=== PATIENT | male | born 1970 | race Caucasian/White ===

== ENCOUNTER → 2024-11-18 08:03 | Outpatient (REF) | payer OTHER, SELFPAY | LOC: HO.SL 08:03 | PROVIDERS: PCP Internal Medicine; Visit Provider Internal Medicine | DX: G47.33 Obstructive sleep apnea (adult) (pediatric) (principal) | CPT/HCPCS: 95806 ==

== ENCOUNTER → 2024-11-18 19:00 | Outpatient (BNV) | payer OTHER, SELFPAY | PROVIDERS: PCP Internal Medicine; Visit Provider Internal Medicine | DX: G47.33 Obstructive sleep apnea (adult) (pediatric) (principal) | CPT/HCPCS: 95806 ==

== ENCOUNTER 2025-04-27 15:00 | Outpatient (AMB) | payer OTHER, SELFPAY ==
--- OUTSIDE RECORDS SUMMARY | 2025-04-26 15:30 | XMS_ITS | Encounter Summary ---
Author Organization [facility] Address [address] [place] [address] Care Team Providers Care Wind Development Director Name Role Phone Robles Smiley MD Primary Care Provider [phone] Reason for Visit * Reason Comments Follow-up Encounter Details Date Type Department Care Team (Late st Contact Info) Description 04/26/2025 3:30 PM EDT Office Visit Adult Medicine [address] [id number] Jennie Perez PA [address] [place] [id number] Primary hypertension (Primary Dx); Hypothyroidism, unspecified type; Prediabetes; Hyperlipidemia, unspecified hyperlipidemia type Social History Tobacco Use Types Packs/Day Years Used Date Smoking Tobacco: Every Day Cigarettes 1.5 40.5 Started: 11/04/1984 Smokeless Tobacco: Never Tobacco Cessation:Ready to Q uit: Not Asked; Counseling Given: Not Answered Alcohol Use Standard Drinks/Week Comments Yes 1 (1 standard drink = 0.6 oz pur e alcohol) Housing Instability Answer Date Recorde d Are you worried that in the next 2 months you may not have stable housing? Patient declined 02/09/2025 Food Access & Nutrition Answer Date Rec orded Do you have access to a vari ety of food including fruits and vegetables? Patient declined 02/09/2025 Access to Healthcare Answer Date Record ed Within the last 3 months, clara arauz many times did you visit the emergency department for your medical care? 0 02/09/2025 Health Literacy Answer Date Recorded How often do you need to hav e someone help you when you read instructions, pamphlets, or other written material from your doctor or pharmacy? Patient declined 02/09/2025 Caregiver: How often do you need to have someone help you when you read instructions, pamphlets, or other written material from your doctor or pharmacy? Not on file 025 Financial Risk Answer Date Recorded How hard is it for you to pa y for the very basics like food, housing, medical care, and air conditioning / heating? Patient declined 02/09/2025 Transportation Answer Date Recorded Has the lack of transportati on kept you from meetings, work, or from getting things needed for daily living? Patient declined 02/09/2025 Has the lack of transportati on kept you from medical appointments or from getting medications? Patient declined 02/09/2025 Social Isolation Answer Date Recorded How often do you feel lonely or isolated from those around you? Patient declined 02/09/2025 Food Risk Answer Date Recorded Within the past 12 months we worried whether our food would run out before we got money to buy more. Patient declined 025 Within the past 12 months th e food we bought just didn't last and we didn't have money to get more. Patient declined 06/2025 Dependent Care Answer Date Recorded Do you need help finding or paying for care for your loved ones. For example, director child abuse therapy or elderly care for an older adult? Patient declined 02/09/2025 Education Answer Date Recorded Do you think completing more education or training, like finishing a GED, going to college, or learning a trade, would be helpful for you? Patient declined 02/09/2025 Employment and Income Answer Date Recor ded During the last four weeks, have you been actively looking for work? Patient declined 02/09/2025 Living Situation Answer Date Recorded What is your living situation? 0 02/09/2025 Sex and Gender Information Value Date Recorded Sex Assigned at Male 11/11/2024 7:13 PM EST Legal Sex Male 4:06 AM EST Gender Identity Male 11/11/2024 7:13 PM EST Sexual Orientation Straight 11/11/2024 7: 13 PM EST documented as of this encounter Last Filed Vital Signs Vital Sign Reading Time Taken Comments Blood Pressure 130/88 04/26/2025 3:17 PM EDT Pulse 85 04/26/2025 3:17 PM EDT Temperature 36.7 C (98.1 F) 04/26/2025 3:17 PM EDT Respiratory Rate 16 04/26/2025 3:17 PM EDT Oxygen Saturation - - Inhaled Oxygen Concentration - - Weight 102 kg (225 lb) 04/26/2025 3:17 PM EDT Height 182.9 cm (6') 04/26/2025 3:17 PM EDT Body Mass Index 30.52 04/26/2025 3:17 PM EDT documented in this encounter Progress Notes * BECKI Bustamante - 04/26/2025 3:30 PM EDT CHIEF COMPLAINT: Follow-up IDENTIFIER: Jamie Parra is a 55 y.o. old male. Past medical history: Hypertension, hyperlipidemia, prediabetes, snoring History of Present Illness The patient presents for a medication check and to review blood work. Hypertension - Reports elevated blood pressure but does not monitor it at home. - Maintains hydration and consumed caffeine this morning. - No headaches or dizziness. - Healthy diet, prefers chicken and hamburgers, avoids excessive salt. - Family history of hypertension in father. - Compliant with antihypertensive medication. Smoking History - History of smoking, currently half to three-quarters of a pack per day. - Previously quit for 13 years, resumed due to stress, desires to quit again. - Tried cessation aids, successful with abrupt cessation. Sleep Study - Upcoming appointment for sleep study equipment fitting. - No prior CPAP use. - observed snoring, no sleep disturbances reported. Supplemental information: Interested in shingles vaccine. Due for colonoscopy next year. Requested testosterone test, no symptoms, 's suggestion. SOCIAL HISTORY Smokes half to three-quarters of a pack of cigarettes a day. FAMILY HISTORY Father has hypertension. ROS: See HPI PAST MEDICAL HISTORY: Patient Active Problem List Diagnosis Date Noted Neck swelling 11/19/2018 Alopecia (capitis) totalis 08/18/2018 PTSD (post-traumatic stress disorder) 08/18/2018 Vitiligo 08/18/2018 Hyperlipidemia 07/23/2018 Hypertension 07/23/2018 Hypothyroidism 07/23/2018 Increased insulin level 07/23/2018 Insulin resistance 07/23/2018 MARIELENA (obstructive sleep apnea) 07/23/2018 Past Surgical History: Procedure Laterality Date OTHER SURGICAL HISTORY PROCEDURE: DENIES PREVIOUS SURGERY SOCIAL HISTORY: Social History Tobacco Use Smoking status: Every Day Current packs/day: 1.50 Average packs/day: 1.5 packs/day for 40.5 years (60.7 ttl pk-yrs) Types: Cigarettes Start date: 11/04/1984 Smokeless tobacco: Never Substance Use Topics Alcohol use: Yes Alcohol/week: 1.0 standard drink of alcohol FAMILY HISTORY: Family History Problem Relation Name Age of Onset Hypertension Mother Diabetes Father CABG @ age 50 Lymphoma Father No Known Problems Brother No Known Problems Brother No Known Problems Brother No Known Problems Brother No Known Problems Son No Known Problems Son No Known Problems Son Family Status Relation Name Status Mother Alive Father Brother (Not Specified) Brother (Not Specified) Brother (Not Specified) Brother (Not Specified) Son (Not Specified) Son (Not Specified) Son (Not Specified) No partnership data on file MEDICATIONS DISCONTINUED/REORDERED: There are no discontinued medications. ACTIVE MEDICATIONS: Outpatient Medications Marked as Taking for the 04/26/25 encounter (Office Visit) with BECKI Bustamante Medication Sig Dispense Refill ascorbic acid (VITAMIN C) 1,000 mg tablet Take 1 tablet (1,000 mg total) by mouth 1 (one) time eachday. cholecalciferol (VITAMIN D-3) 25 mcg (1,000 unit) tablet Take 1 tablet (1,000 Units total) by mouth1 (one) time each day. EPINEPHrine (EPIPEN) 0.3 mg/0.3 mL injection Inject 0.3 mL (0.3 mg total) into the thigh if needed for anaphylaxis. Call 911 after use. 2 each 2 fenofibrate (TRICOR) 48 mg tablet TAKE 1 TABLET BY MOUTH EVERY DAY 90 tablet 1 levothyroxine (SYNTHROID, LEVOTHROID) 112 mcg tablet TAKE 1 TABLET BY MOUTH EVERY DAY 90 tablet 1 lisinopril (PRINIVIL,ZESTRIL) 40 mg tablet Take 1 tablet (40 mg total) by mouth 1 (one) time each day. 90 each 0 omega-3 acid ethyl esters (LOVAZA) 1 gram capsule Take 1 capsule (1 g total) by mouth 1 (one) time each day. omeprazole (PriLOSEC) [address] capsule Take 1 capsule (20 mg total) by mouth 1 (one) time each day.90 each 0 pravastatin (PRAVACHOL) 20 mg tablet Take 1 tablet (20 mg total) by mouth 1 (one) time each day. 90each 0 ALLERGIES: No Known Allergies PHYSICAL EXAM: Vitals: 04/26/25 1517 BP: 130/88 Pulse: 85 Resp: 16 Temp: 36.7 ??C (98.1 ??F) Physical Exam Constitutional: General: He is not in acute distress. Appearance: Normal appearance. He is not ill-appearing. Cardiovascular: Rate and Rhythm: Normal rate and regular rhythm. Heart sounds: No murmur heard. Pulmonary: Effort: Pulmonary effort is normal. Breath sounds: Normal breath sounds. No wheezing. Neurological: Mental Status: He is alert. LABS: Results for orders placed or performed in visit on 03/24/25 Lipid panel with reflex to direct LDL Collection Time: 03/24/25 10:03 AM Result Value Ref Range Cholesterol 183 0 - 200 mg/dL Triglycerides 157 (H) 0 - 150 mg/dL HDL 32 (L) >=40 mg/dL LDL Calculated 120 (H) 0 - 100 mg/dL VLDL Cholesterol Lamont 31.4 mg/dL Non HDL Chol. (LDL+VLDL) 151 (H) <145 mg/dL Chol/HDL Ratio 5.7 (H) 0.0 - 4.4 Hemoglobin A1c Collection Time: 03/24/25 10:03 AM Result Value Ref Range Hemoglobin A1C 5.9 <6.5 % Mean Bld Glu Estim. 123 mg/dL IMAGING: No recent imaging IMPRESSION: 1. Primary hypertension 2. Hypothyroidism, unspecified type 3. Prediabetes 4. Hyperlipidemia, unspecified hyperlipidemia type Assessment & Plan 1. Hypertension: Elevated. - BP readings initially elevated but repeat at the end of visit 130/88. - Monitor BP at home until next appointment with Dr. Smiley in 05/2025, bring log for review. - Dietary modifications: reduce sodium to 2 g/day. - Smoking cessation: set quit date within next month, reduce cigarette intake by one/day until cessation. - No changes to medication. 2. Hypercholesterolemia. - Cholesterol levels elevated. - No changes to medication. - Dietary modifications discussed. 3. Prediabetes - Blood glucose levels improved, still in pre-diabetic range. - Dietary modifications discussed. 4. Sleep apnea. - Appointment tomorrow for CPAP equipment. - Untreated sleep apnea may contribute to elevated BP. - Counseled on sleep apnea's impact on BP. 5. Smoking cessation. - Smokes half to three-quarters of a pack/day. - Set quit date within next month, reduce cigarette intake by one/day until cessation. - Suggested alternative activities like walking. - Previously quit for 13 years, considering quitting again. 6. Health maintenance. - Due for pneumonia vaccine, informed of benefits given smoking history and age. - Interested in shingles vaccine, can get at pharmacy. - Counseled on importance of vaccines. 7. He requested testosterone check. Denies any symptoms Follow-up - Next appointment with Dr. Smiley in 05/2025. I have obtained verbal consent from Jamie Parra prior to the recording. I have advised Jamie Parra that he may refuse the recording and require the recording to be turned off at any time during this encounter. All questions and concerns were addressed. Jamie Parra verbalizes understanding and agrees with this treatment plan. Patient was reminded to call or return to the office if any new or existing problems arise. Orders Placed This Encounter Procedures Testosterone, total None BECKI Bustamante on 04/26/2025 at 5:56 PM EDT Today's documentation was made using voice recognition software.This note may contain grammatical errors secondary to this software. documented in this encounter Plan of Treatment Upcoming Encounters Date Type Department Care Team (Late st Contact Info) Description 05/13/2025 4:30 PM EDT Office Visit Adult Medicine [facility] [address] [place] [address] Robles Smiley MD [address] [place] [address] Scheduled Orders Name Type Priority Associated Diagnoses Orde r Schedule Testosterone, total Lab Routine Primary hypertension Hypothyroidism, unspecified type Prediabetes Hyperlipidemia, unspecified hyperlipidemia type 1 Occurrences starting 04/26/2025 until 04/26/2026 documented as of this encounter Visit Diagnoses Diagnosis Primary hypertension- Primary Unspecified essential hypertension Hypothyroidism, unspecified type Prediabetes Other abnormal glucose Hyperlipidemia, unspecified hyperlipidemia type documented in this encounter Additional Health Concerns Assessment Noted Time PHQ-9 Depression Total Score: 0 02/10/20 25 4:49 PM EDT documented as of this encounter Care Teams Wind Development Director Relationship Specialty Start Date End Date Robles Smiley MD [address] [place] [address] PCP - General 08/18/24 documented as of this encounter
[2025-04-27 15:03] VITALS: BP 138/92; PULSE 87; O2SAT 95; BMI 30.4
--- NOTE | 2025-04-27 15:03 | MHC.OFFVIS ---
Vital Signs 04/27/25 15:03 Height 6 ft Weight 224 lb 6 oz BMI 30.4 BP 138/92 H Blood Pressure Location Lt brachial Position Sitting Pulse 87 Pulse Source Pulse Oximeter Pulse Oximetry (%) 95 Oxygen Delivery Method Room Air Intake Visit Reasons: E-COMPANION CAREGIVER: MARIELENA Intake Note: Patient presents as a new patient visit for MARIELENA. Allergies No Known Allergies Allergy (Verified 04/27/25 15:04) HPI Comments Details: 55 year old male presents for a sleep evaluation, he is referred to us by his PCP. 11/2024 HST c/w moderate severe marielena AHI is 18 and oxygen Nadirs to 83%. He was in the [employer] and has been exposed to many toxins through his career. He has difficulty staying asleep, goes to bed at 10pm, wakes up at 7am with 1-2 bathroom breaks. He snores loudly, gasps for air according to his per his . He feels chronically fatigued and must nap for 15min daily. His memory is stable. Mood is stable. Denies RLS symptoms. Denies morning headaches. He is a current smoker and drinks socially. [facility], [facility] Medical History (Updated 05/02/25 @ 23:18 by Nelly Benavidez PA-C) MARIELENA (obstructive sleep apnea) Insulin resistance Increased insulin level Hypothyroid HTN (hypertension) Vitiligo PTSD (post-traumatic stress disorder) Alopecia Neck swelling Surgical History No pertinent past surgical history Family History Mother HTN (hypertension) Father Diabetes mellitus Lymphoma Social History Alcohol intake: current Alcohol intake frequency: a few times a month Alcohol type: beer Patient Tobacco Use Status: Current everyday Tobacco user Tobacco use type: Cigarette Cigarette Packs Per Day: 0.5 e-Cigarette/Vaping Use: Never Used service: Yes ([employer]) Current occupational status: employed Current occupation: health manager Cognitive needs: No Hearing needs: No Vision needs: No Physical Exam Vital Signs: Last Vital Signs Pulse 87 04/27/25 15:03 BP 138/92 H 04/27/25 15:03 Pulse Ox 95 04/27/25 15:03 Oxygen Delivery Method Room Air 04/27/25 15:03 BMI result Body Mass Index 30.4 Const General: cooperative, comfortable and no acute distress Nutritional Appearance: average body habitus Orientation/consciousness: patient oriented x3 HEENT Face and sinus: Yes face symmetric Throat: Yes other ([place] score of 4) Eyes Pupils: Equal, round and reactive pupils present Neck Other: limited extension and flexion with pain on extension Resp Effort & Inspection: normal respiratory effort and able to speak in complete sentences Neuro General: patient oriented x3 and moves all extremities Cranial nerves: Yes Equal, round and reactive pupils present, Yes Normal accommodation reflex present, Yes Midline tongue present, Yes Ability to bilaterally rotate head present and Yes Ability to bilaterally elevate shoulders present Cognition (Neuro): normal cognition Gait exam (Neuro): Normal gait present Motor exam (neuro): 5/5 motor strength present throughout and Normal motor muscle tone present throughout Coordination: [id number] test normal Psych Appearance: grossly normal Speech and movement: Normal speech and movement present Affect: normal affect Thought process: Normal thought process present Results Reviewed Results Reviewed: 11/2024 HST c/w moderate severe marielena AHI is 18 and oxygen Nadirs to 83%. Assessment & Plan Assessment & Plan (1) MARIELENA (obstructive sleep apnea): Code(s): G47.33 - Obstructive sleep apnea (adult) (pediatric) Category: Medical (2) Excessive daytime sleepiness: Code(s): G47.19 - Other hypersomnia Category: Medical Plan HST is c/w MARIELENA AHI is 18 and oxygen Nadirs to 83%, snoring 18% of sleep. Labs for chronic Fatigue r/o deficiencies start cpap therapy and f/u in 3 months for compliance Patient Instructions: Sleep Hygiene provided: set a scheduled bedtime and wake time to help regulate the circadian rhythm and balance the release of pituitary hormones. Sleep in a dark room, temperatures below 68 degrees, and no devices n bed. Limit caffeinated products 6 hours prior to bed, and limit fluids 2-4 hours prior to bed. Gentle night yoga, diffusing essential oils, and playing soft music can be relaxing. Coding Level of Care Code New Pt Level 4 (40127) Diagnoses MARIELENA (obstructive sleep apnea) G47.33 Excessive daytime sleepiness G47.19 Time Spent (min) 30 Comment start cpap therapy and f/u in 3 months for compliance Sleep Questionnaire Difficulty falling asleep: No Difficulty staying asleep?: Yes Number of arousals: 1-2 Snoring: Yes Witnessed apneas: Yes Gasping arousals: Yes Nocturia: No GERD: No Vivid dreams: No Acting out dreams: No Abnormal behavior in sleep: No Abnormal movements in sleep: No Morning headaches: No Excessive daytime sleepiness: No Daytime naps: Yes (15min) Restless legs: No Hallucinations: No Sleep paralysis: No Drop attacks: No Sleep Study: Yes CPAP: No
== END 2025-04-27 15:44 | disposition home or self-care (01) ==
LOC: HO.HSMS 15:01
PROVIDERS: PCP Internal Medicine; Visit Provider Physician Assistant Medical
DX: G47.33 Obstructive sleep apnea (adult) (pediatric) (principal); G47.19 Other hypersomnia
CPT/HCPCS: 99204